=== PATIENT | male | born 1985 | race Caucasian/White ===

== ENCOUNTER 2019-05-30 20:55 | Emergency (ER) | payer SELFPAY ==
[~2019-05-30] VITALS: Ht 177.8 cm; Wt 79.4 kg
[2019-05-30 20:58] VITALS: BP 125/84
--- NOTE | 2019-05-30 21:05 | NUR ---
PT AMBULATED TO BED 12, STEADY GAIT.
--- NOTE | 2019-05-30 21:20 | NUR ---
33 Y/M PRESENTS TO ED FOR UPPER ABD PAIN X 2 HOURS. PT REPORTS 10/10 PAIN WORSE ON RUQ OF ABD. PT DENIES N/V/D/ OR FEVER. PT DENIES INJURY. PT A&O X 4. RR EVEN. ABD SOFT. BS ACTIVE. DENEIS ANY DYSURIA. SKIN INTACT AND WARM TO TOUCH. RX-TRILEPTAL AND TRAZADONE PMH- BIPOLAR NKDA
--- NOTE | 2019-05-30 21:30 | NUR ---
pt states they do not want their labs drawn and other nursing interventions. doctor Saavedra notified.
--- NOTE | 2019-05-30 21:42 | NUR ---
DR GUTIERREZ AT BEDSIDE
--- NOTE | 2019-05-30 21:56 | NUR ---
PT AMBULATED TO RESTROOM, STEADY GAIT NOTED.
--- NOTE | 2019-05-30 22:01 | NUR ---
LABS AND URINE BROUGHT TO LAB
[2019-05-30 22:08] LABS: BASOPHILS # (AUTO) 0.1 K/uL (0.00-0.22); BASOPHILS % (AUTO) 0.5 % (0.0-2.0); EOSINOPHILS # (AUTO) 0.2 K/uL (0-0.4); EOSINOPHILS % (AUTO) 2.1 % (0.0-4.0); HEMATOCRIT 39.8 % (36-52); HEMOGLOBIN 13.7 g/dL (12.0-18.0); LYMPHOCYTES % (AUTO) 10.5 % (20.5-51.1); MEAN CORPUSCULAR HEMOGLOBIN 31 pg (27-31); MEAN CORPUSCULAR HGB CONC 34 g/dL (33-37); MEAN CORPUSCULAR VOLUME 88.4 fL (80-94); MONOCYTES # (AUTO) 0.6 K/uL (0.8-1.0); MONOCYTES % (AUTO) 6.5 % (1.7-9.3); NEUTROPHILS # (AUTO) 7.9 K/uL (1.8-7.7); NEUTROPHILS % (AUTO) 80.4 % (42.2-75.2); PLATELET COUNT (AUTO) 246 K/uL (140-450); RED CELL DISTRIBUTION WIDTH 12.6 % (11.6-13.7); WHITE BLOOD COUNT (AUTO) 9.9 K/uL (4.8-10.8)
[2019-05-30 22:15] LABS: APPEARANCE,URINE CLEAR (CLEAR); BILIRUBIN,URINE NEGATIVE (NEGATIVE); BLOOD, URINE TRACE-I (NEGATIVE); COLOR,URINE YELLOW (YELLOW); LEUKOCYTE ESTERASE ,URINE NEGATIVE (NEGATIVE); NITRITE, URINE NEGATIVE (NEGATIVE); PH,URINE 6.5 (5.0-9.0); UGLUCOSE NEGATIVE (NEGATIVE)
[2019-05-30 22:26] LABS: ALBUMIN 4.2 g/dL (3.4-5.0); ANION GAP 12.4 (8-16); CARBON DIOXIDE 27.1 mmol/L (21-32); CREATININE 0.8 mg/dL (0.6-1.3); POTASSIUM 3.5 mmol/L (3.5-5.1); TOTAL BILIRUBIN 0.4 mg/dL (0.0-1.0)
[2019-05-30 22:27] LABS: URIC ACID CRYSTALS,URINE 1 /HPF (None Seen); URINE AMORPHOUS URATE 3+ /HPF (None Seen); WBC,URINE 0-5 /HPF (0-5)
[2019-05-30 23:18] VITALS: BP 131/74
--- NOTE | 2019-05-30 23:18 | NUR ---
PT RESTING IN BED COMFORTABLY, NO FURTHER NEEDS AT THIS TIME. VSS. BED RAILS UP X 1. BED LOWEST AND LOCKED.
--- NOTE | 2019-05-31 00:05 | NUR ---
Patient discharged with v/s stable. Written and verbal after care instructions given and explained. Patient verbalized understanding. Ambulatory with steady gait. All questions addressed prior to discharge. Advised to follow up with PMD.
== END 2019-05-31 00:05 | disposition home or self-care (01) ==
LOC: EDSEX 20:55 → MED 20:55
DX: K59.00 Constipation, unspecified (principal); K38.8 Other specified diseases of appendix; K85.90 Acute pancreatitis without necrosis or infection, unspecified; K81.0 Acute cholecystitis; F31.9 Bipolar disorder, unspecified
CPT/HCPCS: 36415; 71045; 76700; 80053; 81001; 83880; 84484; 85025; 93005; 99285; Q0092